=== PATIENT | female | born 1930 | race Caucasian/White ===

== ENCOUNTER 2018-12-31 10:40 | Emergency (ER) | payer OTHER ==
--- NOTE | 2018-12-31 11:42 | RAD REPORT ---
EXAM DESCRIPTION: RAD - Chest Single View - 12/31/2018 11:35 am CLINICAL HISTORY: low O2 sat Chest pain. COMPARISON: No comparisons FINDINGS: Portable technique limits examination quality. The lungs are underinflated with vascular prominence likely representing mild pulmonary edema. The he art is mildly enlarged in size. No displaced fractures.Postsurgical changes present both shoulders. IMPRESSION: Mild CHF versus volume overload.
--- NOTE | 2018-12-31 11:51 | RAD REPORT ---
EXAM DESCRIPTION: CT - Head Brain Wo Cont - 12/31/2018 11:43 am CLINICAL HISTORY: SYNCOPE Headache, syncope COMPARISON: No comparisons TECHNIQUE: All CT scans are performed using dose optimization technique as appropriate and may inclu de automated exposure control or mA/KV adjustment according to patient size. FINDINGS: No intracranial hemorrhage, hydrocephalus or extra-axial fluid collection.Generalized brai n atrophy is present. The paranasal sinuses and mastoids are clear. The calvarium is intact. Vertebral arteries are calcifi ed. IMPRESSION: No acute intracranial abnormality.
[2018-12-31 11:52] LABS: Protime INR 0.96
[2018-12-31 11:55] LABS: Absolute Lymphocytes (CBC) 2.2 K/uL (0.7-4.9); Absolute Monocytes 0.6 K/uL (0.1-1.3); Absolute Neutrophil 3.7 K/uL (1.8-8.0); Basophils % 0.4 % (0-1.3); Eosinophils % 2.2 % (0-4.4); Lymphocytes % 32.9 % (15.3-44.8); MPV 9.2 fL (7.6-11.3); Monocytes % 8.5 % (3.3-12.3); RBC Red Blood Cell Count 4.61 M/uL (3.86-4.86)
[2018-12-31] MEDS ORDERED: NA CHLORIDE 0.9% 1,000 ML ONE (11:59)
[2018-12-31 12:11] LABS: Blood Morphology Comment NOT SEEN (NOT SEEN); Platelet Estimate ADEQ; Urine White Blood Cell Casts OK
[2018-12-31 12:14] LABS: ALT/SGPT 22 U/L (12-78); AST/SGOT 17 U/L (15-37); Albumin 3.8 g/dL (3.4-5.0); Alkaline Phosphatase 91 U/L (45-117); BUN Blood Urea Nitrogen 35 mg/dL (7-18); Bicarbonate 28 mmol/L (21-32); Bilirubin Direct 0.1 mg/dL (0-0.2); Bilirubin Total 0.3 mg/dL (0.2-1.0); Glucose Level 151 mg/dL (74-106); Magnesium 2.2 mg/dL (1.8-2.4); NT PRO-BNP 68 pg/mL (<450); Potassium 4.5 mmol/L (3.5-5.1); Protein, Total 7.6 g/dL (6.4-8.2); Sodium Level 138 mmol/L (136-145); Troponin (Emerg Dept Use Only) < 0.02 ng/mL (0.0-0.045)
[2018-12-31] MEDS ORDERED: FUROSEMIDE 20 MG/ 2ML VIAL ONE (13:11)
[2018-12-31 13:40] LABS: Urine Blood NEGATIVE (NEG); Urine Glucose NEGATIVE (NEG); Urine Protein NEGATIVE (NEG)
--- NOTE | 2018-12-31 13:43 | RAD REPORT ---
EXAM DESCRIPTION: CT - Abdomen Pelvis W Contrast - 12/31/2018 1:11 pm CLINICAL HISTORY: Abdominal pain COMPARISON: None. TECHNIQUE: Biphasic, helical CT imaging of the abdomen and pelvis was performed following 100 ml non -ionic IV contrast. Oral contrast was given. All CT scans are performed using dose optimization technique as appropriate and may include automated exposure control or mA/KV adjustment according to patient size. FINDINGS: No acute lung base finding. Borderline to mild cardiomegaly is present without pericardial thickening or effusion. The liver, spleen, and pancreas show no suspicious findings. Gallbladder is absent. Dilatation of the biliary tree is not outside of normal for a post cholecystectomy patient. Symmetric renal function is seen with no hydronephrosis or suspicious renal mass. No pyelonephritis o r acute parenchymal process. No bladder abnormalities. Uterus and ovaries show no suspicious findings for age. No adrenal abnormalities. No gastric dilatation or wall thickening. No acute small bowel finding. Large stool volume present th roughout the colon. No colon wall thickening, mass or acute colon process seen. Diverticulosis is mil d an without diverticulitis finding. No free air, free fluid or inflammatory stranding. No hernia, mass or bulky lymphadenopathy. Advanced lumbar spine degenerative change present. No pathologic bone process. IMPRESSION: Contrast enhanced CT abdomen and pelvis showing no acute or emergent finding. Non acute findings detailed in the body of the report.
--- NOTE | 2018-12-31 13:58 | EDPHYS ---
Physician Documentation [facility] Name: Liat Mercado Age: 88 yrs Sex: Female : 1930 Arrival Date: 12/31/2018 Time: 10:42 Bed 2 Private MD: ED Physician Clement Valenzuela HPI: 12/31 11:26 This 88 yrs old Female presents to ER via EMS with complaints of Near Syncope.dariusz 11:26 The patient has experienced near-syncope, almost passed out, felt generally weak. dariusz Onset: The symptoms/episode began/occurred just prior to arrival. Duration: This was a single episode. Context: the episode(s) was witnessed, by a daycare worker. Associated injury: The patient did not suffer any apparent associated injury. Associated signs and symptoms: The patient has no apparent associated signs or symptoms. Current symptoms: Currently, the patient is not experiencing any symptoms. The patient has not experienced similar symptoms in the past. Historical: - Allergies: 10:48 No Known Allergies; hb - PMHx: 11:00 Alzheimers; Hyperlipidemia; Hypertension; Hypothyroidism; aa5 - Immunization history:: Adult Immunizations up to date. - Social history:: Smoking status: Patient/guardian denies using tobacco. - Ebola Screening: : No symptoms or risks identified at this time. - Family history:: not pertinent. ROS: 11:26 Constitutional: Negative for fever, chills, and weight loss, Eyes: Negative for injury, dariusz pain, redness, and discharge, ENT: Negative for injury, pain, and discharge, Neck: Negative for injury, pain, and swelling, Cardiovascular: Negative for chest pain, palpitations, and edema, Respiratory: Negative for shortness of breath, cough, wheezing, and pleuritic chest pain, Abdomen/GI: Negative for abdominal pain, nausea, vomiting, diarrhea, and constipation, Back: Negative for injury and pain, : Negative for injury, bleeding, discharge, and swelling, MS/Extremity: Negative for injury and deformity, Psych: Negative for depression, anxiety, suicide ideation, homicidal ideation, and hallucinations, Allergy/Immunology: Negative for hives, rash, and allergies, Endocrine: Negative for neck swelling, polydipsia, polyuria, polyphagia, and marked weight changes, Hematologic/Lymphatic: Negative for swollen nodes, abnormal bleeding, and unusual bruising. 11:26 Skin: Positive for pallor. 11:26 Neuro: Positive for near syncope. Exam: 11:28 Constitutional: This is a well developed, well nourished patient who is awake, alert, dariusz and in no acute distress. Head/Face: Normocephalic, atraumatic. Eyes: Pupils equal round and reactive to light, extra-ocular motions intact. Lids and lashes normal. Conjunctiva and sclera are non-icteric and not injected. Cornea within normal limits. Periorbital areas with no swelling, redness, or edema. ENT: Nares patent. No nasal discharge, no septal abnormalities noted. Tympanic membranes are normal and external auditory canals are clear. Oropharynx with no redness, swelling, or masses, exudates, or evidence of obstruction, uvula midline. Mucous membranes moist. Neck: Trachea midline, no thyromegaly or masses palpated, and no cervical lymphadenopathy. Supple, full range of motion without nuchal rigidity, or vertebral point tenderness. No Meningismus. Chest/axilla: Normal chest wall appearance and motion. Nontender with no deformity. No lesions are appreciated. Cardiovascular: Regular rate and rhythm with a normal S1 and S2. No gallops, murmurs, or rubs. Normal PMI, no JVD. No pulse deficits. Respiratory: Lungs have equal breath sounds bilaterally, clear to auscultation and percussion. No rales, rhonchi or wheezes noted. No increased work of breathing, no retractions or nasal flaring. Abdomen/GI: Soft, non-tender, with normal bowel sounds. No distension or tympany. No guarding or rebound. No evidence of tenderness throughout. Back: No spinal tenderness. No costovertebral tenderness. Full range of motion. MS/ Extremity: Pulses equal, no cyanosis. Neurovascular intact. Full, normal range of motion. Neuro: Awake and alert, GCS 15, oriented to person, place, time, and situation. Cranial nerves II-XII grossly intact. Motor strength 5/5 in all extremities. Sensory grossly intact. Cerebellar exam normal. Normal gait. Psych: Awake, alert, with orientation to person, place and time. Behavior, mood, and affect are within normal limits. 11:28 Skin: Appearance: Color: pale, Temperature: normal temperature, Moisture: normal moisture, petechiae, not noted, ecchymosis, not noted. Vital Signs: 10:45 BP 105 / 74; Pulse 82; Resp 16; Temp 97.8; Pulse Ox 96% on R/A; Weight 89.81 kg; Height hb 5 ft. 6 in. (167.64 cm); Pain 0/10; 11:00 BP 101 / 62; Pulse 89; Resp 16 S; Pulse Ox 95% on R/A; aa5 11:30 BP 102 / 73; Pulse 83; Resp 18 S; Pulse Ox 98% on R/A; aa5 12:20 BP 115 / 71; Pulse 87; Resp 16 S; Pulse Ox 96% on R/A; aa5 13:17 BP 134 / 70; Pulse 82; Resp 16 S; Pulse Ox 96% on R/A; aa5 13:30 BP 122 / 70; Pulse 84; Resp 18 S; Pulse Ox 96% on R/A; aa5 14:45 BP 123 / 75; Pulse 89; Resp 16 S; Temp 97.8(TE); Pulse Ox 97% on R/A; aa5 10:45 Body Mass Index 31.96 (89.81 kg, 167.64 cm) hb MDM: 11:19 Patient medically screened. [facility] 11:29 Data reviewed: vital signs, nurses notes, lab test result(s), EKG, radiologic studies, [facility] CT scan, plain films. 12/31 11:10 Order name: Basic Metabolic Panel 12/31 11:10 Order name: CBC with Diff 12/31 11:10 Order name: LFT's; Complete Time: 12:21 12/31 11:10 Order name: Magnesium; Complete Time: 12:21 12/31 11:10 Order name: NT PRO-BNP; Complete Time: 12:21 12/31 11:10 Order name: PT-INR; Complete Time: 12:04 12/31 11:10 Order name: Troponin (emerg Dept Use Only); Complete Time: 12:21 12/31 11:10 Order name: XRAY Chest (1 view); Complete Time: 12:04 12/31 11:12 Order name: Basic Metabolic Panel; Complete Time: 12:21 EDMS 12/31 11:12 Order name: CBC with Automated Diff; Complete Time: 12:21 EDMS 12/31 11:20 Order name: Urine Culture [facility] 12/31 11:20 Order name: CT Head Brain wo Cont; Complete Time: 12:04 [facility] 12/31 12:01 Order name: CBC Smear Scan; Complete Time: 12:21 EDWV 12/31 12:23 Order name: Urine Dipstick--Ancillary (enter results); Complete Time: 13:43 ms 12/31 11:10 Order name: EKG; Complete Time: 11:13 [facility] 12/31 11:10 Order name: Cardiac monitoring; Complete Time: 11:43 [facility] 12/31 11:10 Order name: EKG - Nurse/Tech; Complete Time: 11:13 [facility] 12/31 11:10 Order name: IV Saline Lock; Complete Time: 11:43 [facility] 12/31 11:10 Order name: Labs collected and sent; Complete Time: 11:43 [facility] 12/31 11:10 Order name: O2 Per Protocol; Complete Time: 11:43 [facility] 12/31 11:10 Order name: O2 Sat Monitoring; Complete Time: 11:43 [facility] 12/31 11:20 Order name: Urine Dipstick-Ancillary (obtain specimen); Complete Time: 12:17 [facility] 12/31 11:41 Order name: Straight Cath; Complete Time: 12:17 12/31 12:23 Order name: CT Abd/Pelvis - IV Contrast Only; Complete Time: 13:55 [facility] Administered Medications: 12:05 Not Given (Duplicate Order): NS 0.9% 1000 ml IV at 125 ml/hr continuous dariusz 13:18 Drug: Lasix 20 mg Route: IVP; Site: right antecubital; aa5 13:25 Follow up: Response: No adverse reaction aa5 14:29 Drug: NS 0.9% 250 ml Route: IV; Rate: bolus; Site: right antecubital; hb 14:55 Follow up: IV Status: Completed infusion; IV Intake: 250ml aa5 14:29 Drug: Mucomyst - Acetylcysteine 600 mg Route: PO; hb 14:55 Follow up: Response: No adverse reaction aa5 Point of Care Testing: Blood Glucose: 11:05 Blood Glucose: 159 mg/dL; aa5 Ranges: Critical Glucose Levels:Adult <50 mg/dl or >400 mg/dl <40 mg/dl or >180 mg/dl Disposition: 12/31/18 13:57 Discharged to Home. Impression: Syncope and collapse, Weakness, Unspecified kidney failure - insufficency. - Condition is Stable. - Discharge Instructions: Near-Syncope, Orthostatic Hypotension, Weakness, Near-Syncope, Wkvo-[id number]-Hnal, Weakness, [id number]-[id number]. - Medication Reconciliation Form, Thank You Letter, Antibiotic Education, Prescription Opioid Use form. - Follow up: Private Physician; When: 1 - 2 days; Reason: Recheck today's complaints, Continuance of care, Re-evaluation by your physician. - Problem is new. - Symptoms have improved. Signatures: Dispatcher [employer] EDMS Clement Valenzuela MD MD cha Calderon, Audri RN RN aa5 Sydnie Thompson RN RN Hattie Vera RN RN Corrections: (The following items were deleted from the chart) 15:04 13:57 12/31/2018 13:57 Discharged to Home. Impression: Syncope and collapse; Weakness; aa5 Unspecified kidney failure - insufficency. Condition is Stable. Discharge Instructions: Near-Syncope, Orthostatic Hypotension, Weakness, Near-Syncope, Mbbk-[id number]-Ydvs, Weakness, [id number]-[id number]. Forms are Medication Reconciliation Form, Thank You Letter, Antibiotic Education, Prescription Opioid Use. Follow up: Private Physician; When: 1 - 2 days; Reason: Recheck today's complaints, Continuance of care, Re-evaluation by your physician. Problem is new. Symptoms have improved. dariusz
--- NOTE | 2018-12-31 13:58 | ER ---
Nurse's Notes [facility] Name: Liat Mercado Age: 88 yrs Sex: Female : 1930 Arrival Date: 12/31/2018 Time: 10:42 Bed 2 Private MD: Diagnosis: Syncope and collapse;Weakness;Unspecified kidney failure-insufficency Presentation: 12/31 10:42 Presenting complaint: EMS states: Witnessed near syncopal episode after standing up hb from cough. Pt collapsed back on to couch, no injuries. BP 94/61, HR 93, SPO2 97% on BGL 167. Transition of care: patient was received from another setting of care (long-term care facility), [facility]. Onset of symptoms was December 31, 2018. Risk Assessment: Do you want to hurt yourself or someone else? Patient reports no desire to harm self or others. Care prior to arrival: 10:42 Method Of Arrival: EMS: [facility] hb 10:42 Acuity: YAMILETH 3 hb 11:00 Initial Sepsis Screen: Does the patient meet any 2 criteria? No. Patient's initial aa5 sepsis screen is negative. Does the patient have a suspected source of infection? No. Patient's initial sepsis screen is negative. Historical: - Allergies: 10:48 No Known Allergies; hb - PMHx: 11:00 Alzheimers; Hyperlipidemia; Hypertension; Hypothyroidism; aa5 - Immunization history:: Adult Immunizations up to date. - Social history:: Smoking status: Patient/guardian denies using tobacco. - Ebola Screening: : No symptoms or risks identified at this time. - Family history:: not pertinent. Screenin:00 Abuse screen: No signs of abuse noted. aa5 11:00 Nutritional screening: No deficits noted. Tuberculosis screening: No symptoms or risk aa5 factors identified. Fall Risk Fall in past 12 months (25 points). Secondary diagnosis (15 points) Alzheimer's, IV access (20 points). Mental Status- Overestimates/Forgets Limitations (15 pts.). Total Escobar Fall Scale indicates High Risk Score (45 or more points). Fall prevention measures have been instituted. Side Rails Up X 2 Placed Close to Nursing Station. Assessment: 11:00 General: Appears comfortable, Behavior is calm, cooperative, Pt sitting up in bed, aa5 denies any symptoms at this time. . Pain: Denies pain. Neuro: Level of Consciousness is awake, obeys commands, confused, Oriented to person, Residential Installer are weak bilaterally Moves all extremities. Speech is normal, Facial symmetry appears normal, Pupils are PERRLA. Cardiovascular: Heart tones S1 S2 present Rhythm is regular. Respiratory: Airway is patent Respiratory effort is even, unlabored, Respiratory pattern is regular, symmetrical, Breath sounds are clear bilaterally. GI: Abdomen is round obese, Bowel sounds present X 4 quads. Abd is soft and non tender X 4 quads. : brief noted. EENT: No signs and/or symptoms were reported regarding the EENT system. Derm: Skin is pink, warm \\T\\ dry. Musculoskeletal: Range of motion: intact in all extremities. 11:40 Reassessment: Pt resting in bed with eyes closed, respirations even and unlabored, skin aa5 is pink/warm/dry. Pt's utavyxsi-[id number] at bedside. . 12:20 Reassessment: Pt crying, pt noted to be guarding abdomen, when asked if having aa5 abdominal pain pt states "no". Pt's [id number]-[id number]-jua attempting to comfort pt. Dr. Valenzuela was notified. . 13:11 Reassessment: Pt back from CT scan via stretcher. aa5 13:11 Reassessment: Pt appears calm, pt's family at bedside. . Neuro: Level of Consciousness aa5 is awake, obeys commands, confused, Oriented to person. Respiratory: Airway is patent Respiratory effort is even, unlabored, Respiratory pattern is regular, symmetrical. Derm: Skin is pink, warm \\T\\ dry. 14:45 Neuro: Level of Consciousness is awake, obeys commands, confused, Oriented to person. aa5 Respiratory: Airway is patent Respiratory effort is even, unlabored, Respiratory pattern is regular, symmetrical. Derm: Skin is pink, warm \\T\\ dry. Vital Signs: 10:45 BP 105 / 74; Pulse 82; Resp 16; Temp 97.8; Pulse Ox 96% on R/A; Weight 89.81 kg; Height hb 5 ft. 6 in. (167.64 cm); Pain 0/10; 11:00 BP 101 / 62; Pulse 89; Resp 16 S; Pulse Ox 95% on R/A; aa5 11:30 BP 102 / 73; Pulse 83; Resp 18 S; Pulse Ox 98% on R/A; aa5 12:20 BP 115 / 71; Pulse 87; Resp 16 S; Pulse Ox 96% on R/A; aa5 13:17 BP 134 / 70; Pulse 82; Resp 16 S; Pulse Ox 96% on R/A; aa5 13:30 BP 122 / 70; Pulse 84; Resp 18 S; Pulse Ox 96% on R/A; aa5 14:45 BP 123 / 75; Pulse 89; Resp 16 S; Temp 97.8(TE); Pulse Ox 97% on R/A; aa5 10:45 Body Mass Index 31.96 (89.81 kg, 167.64 cm) hb ED Course: 10:42 Patient arrived in ED. hb 10:45 Triage completed. hb 10:45 Arm band placed on. hb 10:49 Marla Carranza, RN is Primary Nurse. aa5 11:00 Patient has correct armband on for positive identification. Placed in gown. Bed in low aa5 position. Call light in reach. Side rails up X2. 11:07 EKG done, by corrosion technician. reviewed by Clement Valenzuela MD. sm3 11:18 Initial lab(s) drawn, by ms, sent to lab. aa5 11:19 Clement Valenzuela MD is Attending Physician. dariusz 11:39 XRAY Chest (1 view) In Process Unspecified. EDMS 11:46 CT Head Brain wo Cont In Process Unspecified. EDMS 12:15 Straight cath inserted, using sterile technique, 16 Fr. Specimen obtained. Returned aa5 clear yellow urine. Patient tolerated well. 12:15 No provider procedures requiring assistance completed. aa5 13:11 Inserted saline lock: 22 gauge in right antecubital area, using aseptic technique. aa5 Started by Veronica collection technician. 20 G to L AC was dc'd by collection technician, catheter intact, pressure dressing applied. 13:12 CT Abd/Pelvis - IV Contrast Only In Process Unspecified. EDMS 15:00 IV discontinued, intact, bleeding controlled, No redness/swelling at site. Pressure aa5 dressing applied. Administered Medications: 12:05 Not Given (Duplicate Order): NS 0.9% 1000 ml IV at 125 ml/hr continuous dariusz 13:18 Drug: Lasix 20 mg Route: IVP; Site: right antecubital; aa5 13:25 Follow up: Response: No adverse reaction aa5 14:29 Drug: NS 0.9% 250 ml Route: IV; Rate: bolus; Site: right antecubital; hb 14:55 Follow up: IV Status: Completed infusion; IV Intake: 250ml aa5 14:29 Drug: Mucomyst - Acetylcysteine 600 mg Route: PO; hb 14:55 Follow up: Response: No adverse reaction aa5 Point of Care Testing: Blood Glucose: 11:05 Blood Glucose: 159 mg/dL; aa5 Ranges: Intake: 14:55 IV: 250ml; Total: 250ml. aa5 Output: 14:29 Urine: 400ml (Voided); Total: 400ml. hb Outcome: 13:57 Discharge ordered by . dariusz 15:00 Discharged to [facility]. Via wheelchair, accompanied aa5 by daughter. 15:00 Condition: stable 15:00 Discharge instructions given to Pt's daughter Instructed on discharge instructions, follow up and referral plans. Demonstrated understanding of instructions, follow-up care. 15:04 Patient left the ED. aa5 Signatures: Dispatcher [employer] EDMS Clement Valenzuela MD MD cha Calderon, Audri RN RN aa5 Hattie Vera RN RN Nina Munoz 3 Corrections: (The following items were deleted from the chart) 10:45 10:42 Presenting complaint: EMS states: Witnessed near syncopal episode after standing hb up from cough. Pt collapsed back on to couch, no injuries. BP 94/61, HR 93, SPO2 97% on BGL 127 hb
[2018-12-31] MEDS ORDERED: ACETYLCYST 6,000 MG/30 ML VIAL ONE (14:38)
[2018-12-31] MEDS ORDERED: CEFTRIAXONE/SWI 1gm 1 GM/10 ML SYR ONE (15:59)
--- NOTE | 2019-01-01 08:07 | EKG ---
Test Date: 2018-12-31 Test Time: 10:43:15 Customer Service Leader: ROXANNA MEASUREMENT RESULTS: Intervals: Rate: 88 UT: 178 QRSD: 140 QT: 382 QTc: 462 [place]: P: 92 UT: 178 QRS: -42 T: 8 INTERPRETIVE STATEMENTS: Normal sinus rhythm Left axis deviation Right bundle branch block Minimal voltage criteria for LVH, may be normal variant Abnormal ECG Compared to ECG 10/23/2007 16:57:41 Atrial premature complex(es) no longer present Electronically Signed On 01-01-19 08:06:14 CDT by Gabo Dukes
== END 2018-12-31 15:04 | disposition home or self-care (01) ==
LOC: ER 10:40
DX: R55 Syncope and collapse (principal); R53.83 Other fatigue; N19 Unspecified kidney failure; G30.9 Alzheimer's disease, unspecified; F02.80 Dementia in other diseases classified elsewhere, unspecified severity, without behavioral disturbance, psychotic disturbance, mood disturbance, and anxiety; E78.5 Hyperlipidemia, unspecified; I10 Essential (primary) hypertension; E03.9 Hypothyroidism, unspecified
CPT/HCPCS: 96365; 93005; 85025; 87086; 80048; 36415; 83735; 85610; 82962; 80076; 81003; 84484; 83880; 70450; 74177; 71045; 51702; 96375; 99284; Q9967; J1940; J0696; J7030; 87088

== ENCOUNTER 2019-03-31 17:39 | Observation (INO) | payer OTHER ==
[2019-03-31] MEDS ORDERED: NA CHLORIDE 0.9% 500 ML ONE (21:33)
[2019-03-31 22:37] LABS: Protime INR 0.97
[2019-03-31 22:41] LABS: Absolute Lymphocytes (CBC) 2.1 K/uL (0.7-4.9); Basophils % 0.3 % (0-1.3); Hematocrit 36.3 % (36.0-45.0); Lymphocytes % 44.1 % (15.3-44.8); RBC Red Blood Cell Count 4.16 M/uL (3.86-4.86)
[2019-03-31 22:50] LABS: ALT/SGPT 22 U/L (12-78); AST/SGOT 15 U/L (15-37); Albumin 3.4 g/dL (3.4-5.0); Alkaline Phosphatase 101 U/L (45-117); BUN Blood Urea Nitrogen 25 mg/dL (7-18); Bicarbonate 30 mmol/L (21-32); Bilirubin Direct 0.1 mg/dL (0-0.2); Bilirubin Total 0.3 mg/dL (0.2-1.0); Glucose Level 118 mg/dL (74-106); Lipase 139 U/L (73-393); NT PRO-BNP 114 pg/mL (<450); Protein, Total 6.9 g/dL (6.4-8.2); Sodium Level 142 mmol/L (136-145); Troponin (Emerg Dept Use Only) < 0.02 ng/mL (0.0-0.045)
--- NOTE | 2019-03-31 22:56 | RAD REPORT ---
EXAM DESCRIPTION: RAD - Chest Single View - 03/31/2019 10:01 pm CLINICAL HISTORY: COUGH Chest pain. COMPARISON: Chest Single View dated 12/31/2018 FINDINGS: Portable technique limits examination quality. Mild interstitial pulmonary edema is present. The heart is mildly enlarged in size. No displaced frac tures. IMPRESSION: Mild CHF versus volume overload.
--- NOTE | 2019-03-31 23:04 | ER ---
Nurse's Notes [facility] Name: Liat Mercado Age: 89 yrs Sex: Female : 1930 Arrival Date: 03/31/2019 Time: 17:52 Bed 18 Private MD: Diagnosis: Dyspnea;Weakness;Unspecified combined systolic (congestive) and diastolic (congestive) heart failure;Alzheimer's disease;Hypoxemia Presentation: 03/31 17:52 Presenting complaint: EMS states: NH ATTENDANT AT [facility] CALLED 911 FOR PT HAVE bp A "SHAKING EPISODE" WITH NO FALL, NO LOC, AND NO INCONTINENCE. PT DENIES ACUTE MEDICAL COMPLAINT. Transition of care: patient was received from another setting of care (long-term care facility), [facility]. Onset of symptoms is unknown. Risk Assessment: Do you want to hurt yourself or someone else? Patient reports no desire to harm self or others. Initial Sepsis Screen: Does the patient meet any 2 criteria? No. Patient's initial sepsis screen is negative. Does the patient have a suspected source of infection? No. Patient's initial sepsis screen is negative. Care prior to arrival: Glucose check: 109. 17:52 Method Of Arrival: EMS: [facility] bp 17:52 Acuity: YAMILETH 4 bp Triage Assessment: 17:55 General: Appears in no apparent distress. comfortable, obese, Behavior is calm, bp cooperative. Pain: Denies pain. EENT: No deficits noted. Neuro: MENTATION AND GAIT AT BASELINE. Cardiovascular: No deficits noted. Respiratory: No deficits noted. GI: No signs and/or symptoms were reported involving the gastrointestinal system. : No signs and/or symptoms were reported regarding the genitourinary system. Derm: No deficits noted. Musculoskeletal: No deficits noted. Historical: - Allergies: 17:55 No Known Allergies; bp - PMHx: 17:55 Alzheimers; Hyperlipidemia; Hypertension; Hypothyroidism; bp - Immunization history:: Adult Immunizations up to date. - Social history:: Smoking status: Patient/guardian denies using tobacco. - Ebola Screening: : No symptoms or risks identified at this time. - Family history:: not pertinent. Screenin:57 Abuse screen: Denies threats or abuse. Denies injuries from another. Nutritional bp screening: No deficits noted. Tuberculosis screening: No symptoms or risk factors identified. Fall Risk None identified. Assessment: 17:57 General: SEE TRIAGE NOTE. bp 19:11 General: Appears in no apparent distress. comfortable, Behavior is calm, cooperative, jd3 appropriate for age. Pain: Denies pain. Neuro: Level of Consciousness is awake, alert, obeys commands, Oriented to person, family reports the pt is at baseline.. Cardiovascular: Heart tones S1 S2 present Capillary refill < 3 seconds Patient's skin is warm and dry. Respiratory: Airway is patent Respiratory effort is even, unlabored, Respiratory pattern is regular, symmetrical, Breath sounds are clear bilaterally. GI: No signs and/or symptoms were reported involving the gastrointestinal system. : No signs and/or symptoms were reported regarding the genitourinary system. EENT: No signs and/or symptoms were reported regarding the EENT system. Derm: Skin is intact, Skin is dry, Skin is normal, Skin temperature is warm. Musculoskeletal: Circulation, motion, and sensation intact. Range of motion: intact in all extremities. 20:52 Reassessment: Patient appears in no apparent distress at this time. No changes from jd3 previously documented assessment. Patient and/or family updated on plan of care and expected duration. Pain level reassessed. awaiting orders. 22:23 Reassessment: Patient appears in no apparent distress at this time. Patient and/or jd3 family updated on plan of care and expected duration. Pain level reassessed. labs collected by phlebotomy except for second set of cultures, provider notified. even and unlabored respirations. resting in bed comfortably, denies pain. 23:51 Reassessment: Patient appears in no apparent distress at this time. Patient and/or jd3 family updated on plan of care and expected duration. Pain level reassessed. pt resting in bed with eyes closed, even and unlabored respirations. A\\T\\O X 1. family reports that the pt';s mentation is at baseline. awaiting admission orders and room placement. 04/01 00:31 Reassessment: Patient appears in no apparent distress at this time. No changes from jd3 previously documented assessment. Patient and/or family updated on plan of care and expected duration. Pain level reassessed. report given to Isaac MAR. Vital Signs: 03/31 17:55 BP 137 / 90; Pulse 90; Resp 16; Temp 98.5; Pulse Ox 99% on 2 lpm NC; Weight 90.72 kg; bp 19:14 BP 141 / 73; Pulse 89; Resp 17 S; Pulse Ox 96% on R/A; Pain 0/10; jd3 20:52 BP 150 / 88; Pulse 83; Resp 17 S; Pulse Ox 95% on R/A; jd3 22:25 BP 112 / 96; Pulse 81; Resp 16 S; Pulse Ox 96% on R/A; jd3 23:51 BP 137 / 59; Pulse 83; Resp 17 S; Pulse Ox 99% on R/A; Pain 0/10; jd3 04/01 00:32 BP 117 / 64; Pulse 84; Resp 17 S; Pulse Ox 99% on R/A; jd3 ED Course: 03/31 17:52 Patient arrived in ED. bp 17:54 Triage completed. bp 17:55 Arm band placed on. bp 17:57 Patient has correct armband on for positive identification. Bed in low position. Call bp light in reach. Side rails up X2. Adult w/ patient. 19:11 Sergio Damico, ISABELA is Primary Nurse. jd3 19:46 Clement Valenzuela MD is Attending Physician. dariusz 21:31 Inserted saline lock: 22 gauge in right antecubital area, using aseptic technique. jd3 22:02 XRAY Chest (1 view) In Process Unspecified. EDMS 23:02 Varun Gloria MD is Hospitalizing Provider. [facility] 04/01 00:33 No provider procedures requiring assistance completed. Patient admitted, IV remains in jd3 place. Administered Medications: 03/31 21:37 Drug: NS 0.9% 500 ml Route: IV; Rate: bolus; Site: right antecubital; j 23:49 Follow up: Response: No adverse reaction; IV Status: Completed infusion j 23:50 Drug: Lasix 20 mg Route: IVP; Site: right antecubital; [facility] 04/01 00:45 Follow up: Response: No adverse reaction [facility] 03/31 23:50 Drug: levofloxacin 500 mg Volume: 100 ml; Route: IVPB; Infused Over: 60 mins; Site: [facility] right antecubital; 04/01 00:51 Follow up: Response: No adverse reaction; IV Status: Infusion continued upon admission [facility] 03/31 23:50 Drug: Xopenex 1.25 mg Route: Inhalation; jd3 04/01 00:45 Follow up: Response: No adverse reaction j 03/31 23:50 Drug: AtroVENT Aerosol 0.5 mg Route: Inhalation; jd3 04/01 00:45 Follow up: Response: No adverse reaction jdevika Outcome: 03/31 23:03 Decision to Hospitalize by Provider. dariusz 04/01 00:33 Admitted to Med/surg accompanied by tech, via stretcher, room 401, with chart, Report jdevika called to Isaac MAR Condition: stable Instructed on the need for admit, Demonstrated understanding of instructions. 00:48 Patient left the ED. j Signatures: Dispatcher [employer] EDClement Palmer MD MD cha Davies, Jonathon, RN RN Prosper Schaffer, ISABELA RN bp Corrections: (The following items were deleted from the chart) 03/31 22:25 22:23 Reassessment: Patient appears in no apparent distress at this time. Patient memo and/or family updated on plan of care and expected duration. Pain level reassessed. labs collected by phlebotomy except for second set of cultures, provider notified. [facility] 23:13 23:11 BP 134 / 81; Pulse 67bpm; Resp 15bpm; Spontaneous; Pulse Ox 97% RA; Pain 3/10; jd3jd3
--- NOTE | 2019-03-31 23:05 | EDPHYS ---
Physician Documentation [facility] Name: Liat Mercado Age: 89 yrs Sex: Female : 1930 Arrival Date: 03/31/2019 Time: 17:52 Bed 18 Private MD: ED Physician Clement Valenzuela HPI: 03/31 20:52 This 89 yrs old Female presents to ER via EMS with complaints of ASYMPTOMATIC.dariusz 20:52 weakness, shaking. Onset: The symptoms/episode began/occurred just prior to arrival. dariusz Severity of symptoms: At their worst the symptoms were mild in the emergency department the symptoms are unchanged. The patient has not experienced similar symptoms in the past. Historical: - Allergies: 17:55 No Known Allergies; bp - PMHx: 17:55 Alzheimers; Hyperlipidemia; Hypertension; Hypothyroidism; bp - Immunization history:: Adult Immunizations up to date. - Social history:: Smoking status: Patient/guardian denies using tobacco. - Ebola Screening: : No symptoms or risks identified at this time. - Family history:: not pertinent. ROS: 20:52 Constitutional: Negative for fever, chills, and weight loss, Eyes: Negative for injury, dariusz pain, redness, and discharge, ENT: Negative for injury, pain, and discharge, Neck: Negative for injury, pain, and swelling, Cardiovascular: Negative for chest pain, palpitations, and edema, Respiratory: Negative for shortness of breath, cough, wheezing, and pleuritic chest pain, Abdomen/GI: Negative for abdominal pain, nausea, vomiting, diarrhea, and constipation, Back: Negative for injury and pain, : Negative for injury, bleeding, discharge, and swelling, MS/Extremity: Negative for injury and deformity, Skin: Negative for injury, rash, and discoloration, Neuro: Negative for headache, weakness, numbness, tingling, and seizure, Psych: Negative for depression, anxiety, suicide ideation, homicidal ideation, and hallucinations, Allergy/Immunology: Negative for hives, rash, and allergies, Endocrine: Negative for neck swelling, polydipsia, polyuria, polyphagia, and marked weight changes, Hematologic/Lymphatic: Negative for swollen nodes, abnormal bleeding, and unusual bruising. Exam: 20:52 Constitutional: This is a well developed, well nourished patient who is awake, alert, dariusz and in no acute distress. Head/Face: Normocephalic, atraumatic. Eyes: Pupils equal round and reactive to light, extra-ocular motions intact. Lids and lashes normal. Conjunctiva and sclera are non-icteric and not injected. Cornea within normal limits. Periorbital areas with no swelling, redness, or edema. ENT: Nares patent. No nasal discharge, no septal abnormalities noted. Tympanic membranes are normal and external auditory canals are clear. Oropharynx with no redness, swelling, or masses, exudates, or evidence of obstruction, uvula midline. Mucous membranes moist. Neck: Trachea midline, no thyromegaly or masses palpated, and no cervical lymphadenopathy. Supple, full range of motion without nuchal rigidity, or vertebral point tenderness. No Meningismus. Chest/axilla: Normal chest wall appearance and motion. Nontender with no deformity. No lesions are appreciated. Cardiovascular: Regular rate and rhythm with a normal S1 and S2. No gallops, murmurs, or rubs. Normal PMI, no JVD. No pulse deficits. Respiratory: Lungs have equal breath sounds bilaterally, clear to auscultation and percussion. No rales, rhonchi or wheezes noted. No increased work of breathing, no retractions or nasal flaring. Abdomen/GI: Soft, non-tender, with normal bowel sounds. No distension or tympany. No guarding or rebound. No evidence of tenderness throughout. Back: No spinal tenderness. No costovertebral tenderness. Full range of motion. Female : Normal external genitalia. Skin: Warm, dry with normal turgor. Normal color with no rashes, no lesions, and no evidence of cellulitis. MS/ Extremity: Pulses equal, no cyanosis. Neurovascular intact. Full, normal range of motion. Neuro: Awake and alert, GCS 15, oriented to person, place, time, and situation. Cranial nerves II-XII grossly intact. Motor strength 5/5 in all extremities. Sensory grossly intact. Cerebellar exam normal. Normal gait. Psych: Awake, alert, with orientation to person, place and time. Behavior, mood, and affect are within normal limits. Vital Signs: 17:55 BP 137 / 90; Pulse 90; Resp 16; Temp 98.5; Pulse Ox 99% on 2 lpm NC; Weight 90.72 kg; bp 19:14 BP 141 / 73; Pulse 89; Resp 17 S; Pulse Ox 96% on R/A; Pain 0/10; jd3 20:52 BP 150 / 88; Pulse 83; Resp 17 S; Pulse Ox 95% on R/A; jd3 22:25 BP 112 / 96; Pulse 81; Resp 16 S; Pulse Ox 96% on R/A; jd3 23:51 BP 137 / 59; Pulse 83; Resp 17 S; Pulse Ox 99% on R/A; Pain 0/10; jd3 0912 00:32 BP 117 / 64; Pulse 84; Resp 17 S; Pulse Ox 99% on R/A; jd3 MDM: 03/31 19:46 Patient medically screened. [facility] 20:52 Data reviewed: vital signs, nurses notes, lab test result(s), EKG, radiologic studies, dariusz plain films. 03/31 20:52 Order name: Basic Metabolic Panel; Complete Time: 22:54 [facility] 03/31 20:52 Order name: CBC with Diff; Complete Time: 22:54 [facility] 03/31 20:52 Order name: LFT's; Complete Time: 22:54 [facility] 03/31 20:52 Order name: Magnesium; Complete Time: 22:54 [facility] 03/31 20:52 Order name: NT PRO-BNP; Complete Time: 22:54 [facility] 03/31 20:52 Order name: PT-INR; Complete Time: 22:54 [facility] 03/31 20:52 Order name: Troponin (emerg Dept Use Only); Complete Time: 22:54 [facility] 03/31 20:52 Order name: Urine Culture [facility] 03/31 20:52 Order name: Lipase; Complete Time: 22:54 [facility] 03/31 20:52 Order name: Blood Culture Adult (2) [facility] 03/31 20:52 Order name: Procalcitonin [facility] 03/31 23:45 Order name: Basic Metabolic Panel [facility] 03/31 23:45 Order name: Basic Metabolic Panel [facility] 03/31 23:45 Order name: CBC with Automated Diff [facility] 03/31 20:52 Order name: XRAY Chest (1 view) [facility] 03/31 22:36 Order name: US Extremity Venous Unilateral Ltd [facility] 03/31 23:45 Order name: Echo with Doppler [facility] 03/31 23:45 Order name: CBC with Automated Diff [facility] 03/31 23:45 Order name: Magnesium [facility] 03/31 23:45 Order name: Magnesium [facility] 03/31 23:45 Order name: Phosphorus [facility] 03/31 23:45 Order name: Phosphorus [facility] 03/31 23:45 Order name: NT PRO-BNP [facility] 03/31 23:45 Order name: NT PRO-BNP [facility] 03/31 23:45 Order name: Troponin I [facility] 03/31 23:45 Order name: Troponin I [facility] 04/01 00:26 Order name: Urine Dipstick--Ancillary (enter results) 03/31 20:52 Order name: EKG; Complete Time: 21:22 [facility] 03/31 20:52 Order name: Cardiac monitoring; Complete Time: 21:30 [facility] 03/31 20:52 Order name: EKG - Nurse/Tech; Complete Time: 21:30 [facility] 03/31 20:52 Order name: IV Saline Lock; Complete Time: 21:30 [facility] 03/31 20:52 Order name: O2 Per Protocol; Complete Time: 21:14 [facility] 03/31 20:52 Order name: O2 Sat Monitoring; Complete Time: 21:14 [facility] 03/31 20:52 Order name: Urine Dipstick-Ancillary (obtain specimen); Complete Time: 00:25 [facility] 03/31 23:45 Order name: Physical Therapy Consult [facility] 03/31 23:45 Order name: Heart Healthy [facility] Administered Medications: 21:37 Drug: NS 0.9% 500 ml Route: IV; Rate: bolus; Site: right antecubital; [facility] 23:49 Follow up: Response: No adverse reaction; IV Status: Completed infusion [facility] 23:50 Drug: Lasix 20 mg Route: IVP; Site: right antecubital; [facility] 04/01 00:45 Follow up: Response: No adverse reaction [facility] 03/31 23:50 Drug: levofloxacin 500 mg Volume: 100 ml; Route: IVPB; Infused Over: 60 mins; Site: [facility] right antecubital; 04/01 00:51 Follow up: Response: No adverse reaction; IV Status: Infusion continued upon admission [facility] 03/31 23:50 Drug: Xopenex 1.25 mg Route: Inhalation; [facility] 04/01 00:45 Follow up: Response: No adverse reaction [facility] 03/31 23:50 Drug: AtroVENT Aerosol 0.5 mg Route: Inhalation; [facility] 04/01 00:45 Follow up: Response: No adverse reaction jd3 Disposition: 03/31/19 23:03 Hospitalization ordered by Varun Gloria for Inpatient Admission. Preliminary diagnosis are Dyspnea, Weakness, Unspecified combined systolic (congestive) and diastolic (congestive) heart failure, Alzheimer's disease, Hypoxemia. - Bed requested for Telemetry/MedSurg (Inpatient). - Status is Inpatient Admission. jd3 - Condition is Fair. - Problem is new. - Symptoms have improved. UTI on Admission? No Signatures: Dispatcher [employer] EDMS Nikky Mejia RN RN mw Anderson, Corey, MD MD cha Davies, Jonathon, RN RN jd3 Peltier, Brian, RN RN bp Corrections: (The following items were deleted from the chart) 03/31 23:25 23:03 Hospitalization Ordered by Varun Gloria MD for Inpatient Admission. Preliminary [facility] diagnosis is Dyspnea; Weakness; Unspecified combined systolic (congestive) and diastolic (congestive) heart failure; Alzheimer's disease. Bed requested for Telemetry/MedSurg (Inpatient). Status is Inpatient Admission. Condition is Fair. Problem is new. Symptoms have improved. UTI on Admission? No. dariusz 04/01 00:03 03/31 23:25 03/31/2019 23:03 Hospitalization Ordered by Varun Gloria MD for Inpatient Admission. Preliminary diagnosis is Dyspnea; Weakness; Unspecified combined systolic (congestive) and diastolic (congestive) heart failure; Alzheimer's disease; Hypoxemia. Bed requested for Telemetry/MedSurg (Inpatient). Status is Inpatient Admission. Condition is Fair. Problem is new. Symptoms have improved. UTI on Admission? No. dariusz 04/01 00:48 00:03 03/31/2019 23:03 Hospitalization Ordered by Varun Gloria MD for Inpatient jd3 Admission. Preliminary diagnosis is Dyspnea; Weakness; Unspecified combined systolic (congestive) and diastolic (congestive) heart failure; Alzheimer's disease; Hypoxemia. Bed requested for Telemetry/MedSurg (Inpatient). Status is Inpatient Admission. Condition is Fair. Problem is new. Symptoms have improved. UTI on Admission? No. mw
[2019-03-31] MEDS ORDERED: Levofloxacin500mg IV 500 MG/100 ML BAG IV ONE (23:39)
[2019-03-31] MEDS ORDERED: IPRATROPIUM BROM 0.5MG/2.5ML ONE (23:39)
[2019-03-31] MEDS ORDERED: LEVALBUTEROL 1.25 MG/3 ML NEB ONE (23:39)
[2019-03-31] MEDS ORDERED: FUROSEMIDE 20 MG/ 2ML VIAL ONE (23:39)
[2019-03-31] MEDS ORDERED: NA CHLORIDE 0.9% 1,000 ML IV SCH (23:45)
[2019-04-01 02:31] VITALS: BMI 40.8
[2019-04-01 04:01] LABS: Urine Blood NEGATIVE (NEG); Urine Glucose NEGATIVE (NEG); Urine Protein NEGATIVE (NEG)
[2019-04-01 05:23] LABS: Absolute Lymphocytes (CBC) 1.5 K/uL (0.7-4.9); Basophils % 0.2 % (0-1.3); Hematocrit 33.9 % (36.0-45.0); Lymphocytes % 30.7 % (15.3-44.8); MPV 8.8 fL (7.6-11.3)
[2019-04-01 05:35] LABS: Magnesium 1.8 mg/dL (1.8-2.4); Phosphorus 3.6 mg/dL (2.5-4.9); Potassium 3.5 mmol/L (3.5-5.1)
[2019-04-01] MEDS ORDERED: POTASSIUM CL SA 10 MEQ TAB PO ONE (07:30)
[2019-04-01] MEDS ORDERED: MAGNESIUM SULFATE 1 gm IVPB 1 GM/100 ML BAG IV ONE (07:30)
[2019-04-01] MEDS: ENOXAPARIN 40 MG/0.4 ML SQ SCH (08:20)
[2019-04-01] MEDS: FUROSEMIDE 40 MG/4 ML VIAL IV SCH (08:20)
--- NOTE | 2019-04-01 08:25 | RAD REPORT ---
EXAM DESCRIPTION: US - Extremity Venous Uni Ltd - 04/01/2019 8:01 am CLINICAL HISTORY: PAIN Leg swelling and edema. COMPARISON: No comparisons FINDINGS: Left lower extremity venous system was interrogated with Doppler technique. Normal flow, c ompressibility and augmentation was noted. There is no DVT present. IMPRESSION: No evidence of left lower extremity deep venous thrombosis.
--- NOTE | 2019-04-01 08:30 | P.HP ---
Certification for Inpatient Patient admitted to: Observation With expected LOS: <2 Midnights Patient will require the following post-hospital care: None Practitioner: I am a practitioner with admitting privileges, knowledge of patient current condition, hospital course, and medical plan of care. Services: Services provided to patient in accordance with Admission requirements found in Title 42 Section 412.3 of the Code of Federal Regulations Patient History Date of Service: 03/31/19 Reason for admission: Dyspnea History of Present Illness: Patient is an 89-year-old female came to the hospital with shortness of breath. Patient lives at an assisted living as she has a history of Alzheimer's dementia. She apparently started having tremors/rigors. She was noted to be a little tachypneic as well. She has dementia and is really not able to give much information. They brought her into the hospital for further evaluation. In the emergency room, she had a workup which revealed pulmonary edema. However , her BNP was not elevated. She may have diastolic dysfunction. She may have an underlying pneumonic process. She will be admitted to the hospital under observation status for further evaluation. Allergies No Known Allergies Allergy (Unverified 04/01/19 01:38) Home Medications: Acetaminophen [Pain Relief] 2 tab PO Q4HP PRN 04/01/19 Amlodipine Besylate/Benazepril [Amlodipine-Benazepril 5-20 mg] 1 tab PO DAILY Amoxicillin 1 tab PO BID 04/01/19 B12 Liquid 1,000 mg PO DAILY 04/01/19 Cranberry Fruit Extract/Vit C [Azo Cranberry Softgel] 1 cap PO DAILY 04/01/19 Diclofenac Sodium [Voltaren] 1 win TOP Q6HP PRN 04/01/19 Docosahexanoic AC/Epa [Fish Oil 1,000 MG*] 2 cap PO DAILY 04/01/19 Garlic 1 tab PO DAILY 04/01/19 Levothyroxine [Synthroid*] 1 tab PO DAILY 04/01/19 Loperamide HCl [Imodium A-D] 1 tab PO Q6HP PRN 04/01/19 Melatonin 1 tab PO BEDTIME 04/01/19 Memantine HCl [Namenda*] 1 tab PO BID 04/01/19 Multivit-Min/FA/Lycopen/Lutein [Cvs Spectravite Adult 50 Plus] 1 tab PO DAILY Polyethylene Glycol 3350 [Miralax] 1 pkt PO DAILY 04/01/19 Quetiapine [Seroquel*] 1 tab PO TID PRN 04/01/19 Quetiapine [Seroquel*] 2 tab PO BEDTIME 04/01/19 Simvastatin 1 tab PO DAILY 04/01/19 Triamterene/Hctz [Maxzide 37.5 mg-25 mg Tablet*] 1 tab PO DAILY 04/01/19 - Past Medical/Surgical History Has patient received pneumonia vaccine in the past: Yes Diabetic: No -: Alzheimers -: HLD -: HTN -: Hypothyrodism -: knee surgery -: rotator cuff surgery -: cataract - Family History Father Notes: alzheimers Mother Medical History: Heart disease - Social History Smoking Status: Never smoker Alcohol use: No CD- Drugs: No Caffeine use: Yes Place of Residence: Residential Review of Systems 10-point ROS is otherwise unremarkable Physical Examination - Vital Signs Temperature: 97.3 F Blood Pressure: 118/82 Pulse: 84 Respirations: 16 Pulse Ox (%): 92 - Physical Exam General: Alert, In no apparent distress, Demented HEENT: Atraumatic, PERRLA, Mucous membr. moist/pink, EOMI, Sclerae nonicteric Neck: Supple, 2+ carotid pulse no bruit, No LAD, Without JVD or thyroid abnormality Respiratory: Clear to auscultation bilaterally, Normal air movement Cardiovascular: Regular rate/rhythm, Normal S1 S2, Systolic murmur Gastrointestinal: Normal bowel sounds, Soft and benign, Non-distended, No tenderness Musculoskeletal: No clubbing, No swelling, No tenderness Integumentary: No rashes Neurological: Normal speech, Normal tone, Sensation intact, Cranial nerves 3-12 intact, Abnormal gait, Abnormal strength, Dementia Lymphatics: No axilla or inguinal lymphadenopathy - Studies Laboratory Data (last 24 hrs) 03/31/19 22:15: PT 11.5, INR 0.97 03/31/19 22:15: WBC 4.7 D, Hgb 12.3, Hct 36.3, Plt Count 170 03/31/19 22:15: Sodium 142, Potassium 4.0, BUN 25 H, Creatinine 0.76, Glucose 118 H, Magnesium 2.0, Total Bilirubin 0.3, AST 15, ALT 22, Alkaline Phosphatase 101, Lipase 139 Assessment & Plan - Problems (Diagnosis) (1) Diastolic CHF, acute Current Visit: Yes Status: Acute (2) Alzheimer's dementia Current Visit: Yes Status: Acute (3) Dyspnea Current Visit: Yes Status: Acute (4) Rigors Current Visit: Yes Status: Acute (5) Generalized weakness Current Visit: Yes Status: Acute - Plan Plan: 1. Echocardiogram 2. May need to repeat chest x-ray or get further diagnostic testing to determine if patient has any other underlying pulmonary issues 3. Start low-dose Beta karly 4. Cardiology consultation pending echo results 5. Mild diuresis 6. Strict I's and O's 7. Repeat CXR 8. Daily weights 9. Education regarding diet and treatment of congestive heart failure Discharge Plan: Other (Assisted living) Plan to discharge in: 24 Hours - Advance Directives Does patient have a Living Will: No Does patient have a Durable POA for Healthcare: Yes - Code Status/Comfort Care Code Status Assessed: Yes Code Status: Full Code Critical Care: No Time Spent Managing PTS Care (In Minutes): 45
--- NOTE | 2019-04-01 11:09 | EKG ---
Test Date: 2019-03-31 Test Time: 21:12:40 [employer] Printer: YUMI MEASUREMENT RESULTS: Intervals: Rate: 81 NJ: 206 QRSD: 142 QT: 406 QTc: 471 Roff: P: 38 NJ: 206 QRS: -46 T: 32 INTERPRETIVE STATEMENTS: Normal sinus rhythm Right bundle branch block Left anterior fascicular block Bifascicular block Abnormal ECG Compared to ECG 12/31/2018 10:43:15 Left anterior fascicular block now present Bifascicular block now present Left-axis deviation no longer present Left ventricular hypertrophy no longer present Electronically Signed On 04-01-19 11:06:16 CDT by Johan Perez
--- NOTE | 2019-04-01 17:28 | P.PN ---
Subjective Date of Service: 04/01/19 Chief Complaint: Dyspnea Subjective: Improving Patient states she feels much better today. She stated shortness of breath has improved but she is still coughing. No fever. Review of Systems 10-point ROS is otherwise unremarkable Physical Examination - Vital Signs Temperature: 97.3 F Blood Pressure: 118/82 Pulse: 84 Respirations: 16 Pulse Ox (%): 92 - Physical Exam General: Alert, In no apparent distress, Oriented x3 HEENT: Mucous membr. moist/pink Neck: Supple, JVD not distended Respiratory: Other (Mild bibasilar crackles) Cardiovascular: Regular rate/rhythm, Normal S1 S2, Edema (1+ bilateral lower extremity edema) Gastrointestinal: Normal bowel sounds, Soft and benign, No ascites Musculoskeletal: No swelling Integumentary: No rashes Neurological: Normal strength at 5/5 x4 extr - Studies Laboratory Data (last 24 hrs) 03/31/19 22:15: PT 11.5, INR 0.97 03/31/19 22:15: WBC 4.7 D, Hgb 12.3, Hct 36.3, Plt Count 170 03/31/19 22:15: Sodium 142, Potassium 4.0, BUN 25 H, Creatinine 0.76, Glucose 118 H, Magnesium 2.0, Total Bilirubin 0.3, AST 15, ALT 22, Alkaline Phosphatase 101, Lipase 139 Assessment And Plan - Current Problems (Diagnosis) (1) Diastolic CHF, acute Current Visit: Yes Status: Acute (2) Alzheimer's dementia Current Visit: Yes Status: Acute - Plan Continue IV lasix Daily weight Echocardiogram is pending Further management pending echocardiogram result.
[2019-04-01] MEDS ORDERED: cloNIDine HCl 0.1 MG TAB PO ONE (20:39)
[2019-04-01] MEDS ORDERED: QUETIAPINE 100MG TAB PO SCH (21:00)
[2019-04-02] MEDS ORDERED: QUETIAPINE 25 MG TAB PO PRN (00:55)
[2019-04-02] MEDS ORDERED: MELATONIN PO SCH ×2 (00:59→21:00)
[2019-04-02 06:59] LABS: Potassium 3.6 mmol/L (3.5-5.1)
--- NOTE | 2019-04-02 08:03 | ECHO ---
HEIGHT: 4 ft 11 in WEIGHT: 202 lb 4.8 oz DATE OF STUDY: 04/01/[address]: Varun Gloria MD 2-DIMENSIONAL: YES M.MODE: YES DOPPLER: YES COLOR FLOW: YES TDS: YES PORTABLE: NO DEFINITY: NO BUBBLE STUDY: NO DIAGNOSIS: CONGESTIVE HEART FAILURE CARDIAC HISTORY: CATHERIZATION: NO SURGERY: NO PROSTHETIC VALVE: NO PACEMAKER: NO MEASUREMENTS (cm) DIASTOLIC (NORMALS) SYSTOLIC (NORMALS) IVSd 1.1 (0.6-1.2) LA Diam 3.4 (1.9-4.0) LVEF 68% LVIDd 4.0 (3.5-5.7) LVIDs 2.5 (2.0-3.5) %FS 38% LVPWd 1.1 (0.6-1.2) Ao Diam 2.6 (2.0-3.7) 2 DIMENSIONAL ASSESSMENT: RIGHT ATRIUM: NORMAL LEFT ATRIUM: NORMAL RIGHT VENTRICLE: NORMAL LEFT VENTRICLE: NORMAL TRICUSPID VALVE: NORMAL MITRAL VALVE: NORMAL PULMONIC VALVE: NORMAL AORTIC VALVE: NORMAL PERICARDIAL EFFUSION: NONE AORTIC ROOT: NORMAL LEFT VENTRICULAR WALL MOTION: DECREASED LEFT VENTRICULAR COMPLIANCE. DOPPLER/COLOR FLOW: MILD TRICUSPID REGURGITATION. COMMENTS: NORMAL LEFT VENTRICULAR SIZE. DECREASED LEFT VENTRICULAR COMPLIANCE. MILD TRICUSPID REGURGITATION. NORMAL RIGHT VENTRICULAR SYSTOLIC PRESSURE. NO EFFUSION. TECHNOLOGIST: Nicky ALSTON
[2019-04-02] MEDS: ENOXAPARIN 40 MG/0.4 ML SQ SCH (08:32)
[2019-04-02] MEDS: FUROSEMIDE 40 MG/4 ML VIAL IV SCH (08:34)
[2019-04-02 08:35] VITALS: BP 125/63
[2019-04-02] MEDS ORDERED: LEVOTHYROXINE SOD 0.05 MG TABLET PO SCH (09:00)
[2019-04-02] MEDS ORDERED: MEMANTINE HCL 10 MG TABLET PO SCH (09:00)
[2019-04-02] MEDS ORDERED: POTASSIUM 25 MEQ EFFERV TAB PO ONE (09:00)
[2019-04-02 10:09] VITALS: O2SAT 97
--- NOTE | 2019-04-02 10:24 | P.DS ---
Admission Date: 03/31/19 Discharge Date: 04/02/19 Disposition: TRANSFER TO [facility] Discharge Condition: GOOD Reason for Admission: Dyspnea - Problems (1) Diastolic CHF, acute Status: Acute (2) Alzheimer's dementia Status: Acute Brief History of Present Illness: 89-year-old woman was transferred from assisted living to the emergency department course she developed sudden rigors and tremors and became tachypneic. Daughter also reports patient developed transient rapid heart rate. In the ED, chest x-ray demonstrated mild pulmonary edema. She was afebrile and no leukocytosis. Patient is placed under observation for further management of acute CHF. Hospital Course: Patient admitted with telemetry. Troponin trended was negative. She was treated with IV Lasix. Echocardiogram was performed which reported normal EF. Patient clinically improved with treatment. She did not require oxygen. She is deemed clinically stable for discharge. Vital Signs/Physical Exam: Temp Pulse Resp BP Pulse Ox 98.5 F 68 19 125/63 96 04/02/19 04:00 04/02/19 08:34 04/02/19 04:00 04/02/19 08:34 04/02/19 04:00 General: Oriented x1, Cooperative HEENT: Mucous membr. moist/pink Neck: Supple, JVD not distended, No Thyromegaly Respiratory: Clear to auscultation bilaterally, Normal air movement Cardiovascular: No edema, Regular rate/rhythm, Normal S1 S2 Gastrointestinal: Normal bowel sounds, Soft and benign, No tenderness Musculoskeletal: No swelling, No erythema Laboratory Data at Discharge: WBC 5.0 K/uL (4.3-10.9) 04/01/19 04:50 Hgb 11.7 g/dL (12.0-15.0) L 04/01/19 04:50 Hct 33.9 % (36.0-45.0) L 04/01/19 04:50 Plt Count 176 K/uL (152-406) 04/01/19 04:50 PT 11.5 SECONDS (9.5-12.5) 03/31/19 22:15 INR 0.97 03/31/19 22:15 Sodium 140 mmol/L (136-145) 04/02/19 06:23 Potassium 3.6 mmol/L (3.5-5.1) 04/02/19 06:23 BUN 22 mg/dL (7-18) H 04/02/19 06:23 Creatinine 0.71 mg/dL (0.55-1.3) 04/02/19 06:23 Glucose 108 mg/dL (74-106) H 04/02/19 06:23 Phosphorus 3.6 mg/dL (2.5-4.9) 04/01/19 04:50 Magnesium 2.0 mg/dL (1.8-2.4) 04/02/19 06:23 Total Bilirubin 0.3 mg/dL (0.2-1.0) 03/31/19 22:15 AST 15 U/L (15-37) 03/31/19 22:15 ALT 22 U/L (12-78) 03/31/19 22:15 Alkaline Phosphatase 101 U/L (45-117) 03/31/19 22:15 Troponin I < 0.02 ng/mL (0.0-0.045) 04/01/19 04:50 Lipase 139 U/L (73-393) 03/31/19 22:15 Home Medications: Acetaminophen [Pain Relief] 2 tab PO Q4HP PRN 04/01/19 Amlodipine Besylate/Benazepril [Amlodipine-Benazepril 5-20 mg] 1 tab PO DAILY Amoxicillin 1 tab PO BID 04/01/19 B12 Liquid 1,000 mg PO DAILY 04/01/19 Cranberry Fruit Extract/Vit C [Azo Cranberry Softgel] 1 cap PO DAILY 04/01/19 Diclofenac Sodium [Voltaren] 1 win TOP Q6HP PRN 04/01/19 Docosahexanoic AC/Epa [Fish Oil 1,000 MG*] 2 cap PO DAILY 04/01/19 Garlic 1 tab PO DAILY 04/01/19 Levothyroxine [Synthroid*] 1 tab PO DAILY 04/01/19 Loperamide HCl [Imodium A-D] 1 tab PO Q6HP PRN 04/01/19 Melatonin 1 tab PO BEDTIME 04/01/19 Memantine HCl [Namenda*] 1 tab PO BID 04/01/19 Multivit-Min/FA/Lycopen/Lutein [Cvs Spectravite Adult 50 Plus] 1 tab PO DAILY Polyethylene Glycol 3350 [Miralax] 1 pkt PO DAILY 04/01/19 Quetiapine [Seroquel*] 1 tab PO TID PRN 04/01/19 Quetiapine [Seroquel*] 2 tab PO BEDTIME 04/01/19 Simvastatin 1 tab PO DAILY 04/01/19 Triamterene/Hctz [Maxzide 37.5 mg-25 mg Tablet*] 1 tab PO DAILY 04/01/19 Diet: AHA Activity: Fall precautions
[2019-04-02 10:45] VITALS: TEMP 97.2
[2019-04-02] MEDS ORDERED: QUETIAPINE 100MG TAB PO SCH (21:00)
[2019-04-02] MEDS ORDERED: MELATONIN 5 MG TABLET PO SCH (21:00)
== END 2019-04-02 12:01 | disposition home or self-care (01) ==
LOC: ER 17:39 → ERHOLD 23:46 → 4TH 04-01 00:32
PROVIDERS: ADMIT Hospitalist; ATTEND Internal Medicine
DX: I50.31 Acute diastolic (congestive) heart failure (principal); E78.5 Hyperlipidemia, unspecified; I10 Essential (primary) hypertension; E03.9 Hypothyroidism, unspecified; R53.1 Weakness; G30.9 Alzheimer's disease, unspecified; F02.80 Dementia in other diseases classified elsewhere, unspecified severity, without behavioral disturbance, psychotic disturbance, mood disturbance, and anxiety
CPT/HCPCS: 96365; 96361; 93005; 93306; 87040 ×2; 87088; 85025 ×3; 87086; 80048 ×3; 36415 ×2; 83735 ×3; 84100; 85610; 80076; 81003; 83036; 84484 ×2; 83690; 84145; 83880 ×2; 71045; 93971; 97116; 97161; 96375; 99285; J1940 ×3; J1650 ×2; J3475; J7030; G0378 ×3

== ENCOUNTER 2020-01-21 08:57 | Emergency (ER) | payer OTHER ==
[2020-01-21] MEDS ORDERED: NA CHLORIDE 0.9% 500 ML ONE (09:26)
[2020-01-21 09:58] LABS: Absolute Lymphocytes (CBC) 1.4 K/uL (0.7-4.9); Basophils % 0.2 % (0-1.3); Hematocrit 38.1 % (36.0-45.0); RBC Red Blood Cell Count 4.33 M/uL (3.86-4.86)
[2020-01-21 10:00] LABS: Protime INR 0.89
[2020-01-21 10:04] LABS: ALT/SGPT 22 U/L (12-78); AST/SGOT 15 U/L (15-37); Albumin 3.6 g/dL (3.4-5.0); Alkaline Phosphatase 98 U/L (45-117); BUN Blood Urea Nitrogen 33 mg/dL (7-18); Bicarbonate 30 mmol/L (21-32); Bilirubin Direct < 0.1 mg/dL (0-0.2); Bilirubin Total 0.2 mg/dL (0.2-1.0); CKMB Creatine Kinase MB 1.9 ng/mL (0.3-3.6); Creatine Phosphokinase 46 U/L (26-192); Glucose Level 128 mg/dL (74-106); Lipase 107 U/L (73-393); Magnesium 2.2 mg/dL (1.8-2.4); Potassium 3.9 mmol/L (3.5-5.1); Protein, Total 7.6 g/dL (6.4-8.2); Sodium Level 141 mmol/L (136-145); Troponin (Emerg Dept Use Only) < 0.02 ng/mL (0.0-0.045)
--- NOTE | 2020-01-21 10:34 | RAD REPORT ---
EXAM DESCRIPTION: CT - [id number] - 01/21/2020 10:11 am CLINICAL HISTORY: Trauma, head and neck injury. PAIN COMPARISON: No comparisons TECHNIQUE: Axial 5 mm thick images of the head were obtained. Axial 2 mm thick images of the cervical spine were obtained with sagittal and coronal reconstruction images generated and reviewed. All CT scans are performed using dose optimization technique as appropriate and may include automated exposure control or mA/KV adjustment according to patient size. FINDINGS: CT HEAD WITHOUT CONTRAST: No acute hemorrhage, hydrocephalus or extra-axial collection is identified.Moderate global brain atro phy.No areas of brain edema or midline shift. The paranasal sinuses and mastoids are clear.The calvarium is intact. CT CERVICAL SPINE WITHOUT CONTRAST: No fracture or subluxation.Moderate multilevel mid and lower cervical degenerative changes are presen t.No prevertebral soft tissues swelling is identified. IMPRESSION: No acute intracranial or cervical spine findings. Moderate mid and lower cervical degenerative changes.
--- NOTE | 2020-01-21 11:29 | RAD REPORT ---
EXAM DESCRIPTION: RAD - Pelvis - 01/21/2020 10:46 am CLINICAL HISTORY: PAIN COMPARISON: No comparisons FINDINGS: Diffuse osteopenia is seen. Mild degenerative changes are present in both hips. No acute f racture or dislocation seen.
--- NOTE | 2020-01-21 11:33 | RAD REPORT ---
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 No fracture or joint effusion. No aggressive marrow lesion.
--- NOTE | 2020-01-21 12:00 | EDPHYS ---
Physician Documentation [facility] Name: Liat Mercado Age: 89 yrs Sex: Female : 1930 Arrival Date: 01/21/2020 Time: 09:06 Bed 2 Private MD: ED Physician Varun Obando HPI: 01/20 11:57 This 89 yrs old Female presents to ER via EMS with complaints of syncope. ma2 11:57 fall. Onset: The symptoms/episode began/occurred gradually, 2 day(s) ago. Severity of ma2 symptoms: At their worst the symptoms were very mild in the emergency department the symptoms are unchanged. The patient has experienced similar episodes in the past. Historical: - Allergies: 09:12 No Known Allergies; em - PMHx: 09:12 Alzheimers; Hyperlipidemia; Hypertension; Hypothyroidism; em - Immunization history:: Adult Immunizations up to date. - Social history:: Smoking status: Patient denies any tobacco usage or history of. Patient/guardian denies using alcohol, street drugs, The patient lives with family. - Family history:: not pertinent. ROS: 11:57 Constitutional: Negative for fever, chills, and weight loss, Eyes: Negative for injury, ma2 pain, redness, and discharge. 11:57 All other systems are negative. Exam: 11:57 Constitutional: This is a well developed, well nourished patient who is awake, alert, ma2 and in no acute distress. Head/Face: Normocephalic, atraumatic. Eyes: Pupils equal round and reactive to light, extra-ocular motions intact. Lids and lashes normal. Conjunctiva and sclera are non-icteric and not injected. Cornea within normal limits. Periorbital areas with no swelling, redness, or edema. ENT: Nares patent. No nasal discharge, no septal abnormalities noted. Tympanic membranes are normal and external auditory canals are clear. Oropharynx with no redness, swelling, or masses, exudates, or evidence of obstruction, uvula midline. Mucous membranes moist. Neck: Trachea midline, no thyromegaly or masses palpated, and no cervical lymphadenopathy. Supple, full range of motion without nuchal rigidity, or vertebral point tenderness. No Meningismus. Chest/axilla: Normal chest wall appearance and motion. Nontender with no deformity. No lesions are appreciated. Cardiovascular: Regular rate and rhythm with a normal S1 and S2. No gallops, murmurs, or rubs. Normal PMI, no JVD. No pulse deficits. Respiratory: Lungs have equal breath sounds bilaterally, clear to auscultation and percussion. No rales, rhonchi or wheezes noted. No increased work of breathing, no retractions or nasal flaring. Abdomen/GI: Soft, non-tender, with normal bowel sounds. No distension or tympany. No guarding or rebound. No evidence of tenderness throughout. Back: No spinal tenderness. No costovertebral tenderness. Full range of motion. Skin: Warm, dry with normal turgor. Normal color with no rashes, no lesions, and no evidence of cellulitis. MS/ Extremity: Pulses equal, no cyanosis. Neurovascular intact. Full, normal range of motion. Neuro: Awake and alert, GCS 15, oriented to person, place, time, and situation. Cranial nerves II-XII grossly intact. Motor strength 5/5 in all extremities. Sensory grossly intact. Cerebellar exam normal. Normal gait. Vital Signs: 09:10 BP 124 / 85; Pulse 87; Resp 18; Temp 97.8; Pulse Ox 94% on R/A; Weight 90.72 kg; Pain em 0/10; MDM: 09:06 Patient medically screened. [facility] 11:57 Differential Diagnosis syncope, fall, arrythmia, . Data reviewed: vital signs, nurses [facility] notes. Counseling: I had a detailed discussion with the patient and/or guardian regarding: the historical points, exam findings, and any diagnostic results supporting the discharge/admit diagnosis, the presence of at least one elevated blood pressure reading (>120/80) during this emergency department visit, the need for further work-up and treatment in the hospital. Response to treatment: the patient's symptoms have markedly improved after treatment. 12:07 ED course: patient evaluated by dr. dow and jacob and patient now want to be [facility] discharged and f/u with her pcp in 1 day for syncope workup.. daughter at bedside and she want that plan as well/. 01/20 09:08 Order name: Basic Metabolic Panel [facility] 01/20 09:08 Order name: CBC with Diff [facility] 01/20 09:08 Order name: Ckmb [facility] 01/20 09:08 Order name: CPK ma2 01/20 09:08 Order name: Hepatic Function; Complete Time: 11:36 ma2 01/20 09:08 Order name: Lipase; Complete Time: 11:36 ma2 01/20 09:08 Order name: Magnesium; Complete Time: 11:36 ma2 01/20 09:08 Order name: Protime (+inr); Complete Time: 11:36 ma2 01/20 09:08 Order name: Ptt, Activated; Complete Time: 11:36 ma2 01/20 09:08 Order name: Troponin (emerg Dept Use Only); Complete Time: 11:36 ma2 01/20 09:08 Order name: Basic Metabolic Panel; Complete Time: 11:36 EDMS 01/20 09:08 Order name: CBC with Automated Diff; Complete Time: 11:36 EDMS 01/20 09:09 Order name: CKMB Creatine Kinase MB; Complete Time: 11:36 EDMS 01/20 09:09 Order name: Creatine Phosphokinase; Complete Time: 11:36 EDMS 01/20 09:08 Order name: CT Head C Spine; Complete Time: 11:36 ma2 01/20 09:08 Order name: EKG; Complete Time: 09:09 ma2 01/20 09:08 Order name: Cardiac monitoring; Complete Time: 13:15 ma2 01/20 09:08 Order name: EKG - Nurse/Tech; Complete Time: 11:08 ma2 01/20 09:08 Order name: IV Saline Lock; Complete Time: 09:13 ma2 01/20 09:08 Order name: Labs collected and sent; Complete Time: 09:13 ma2 01/20 09:08 Order name: NPO; Complete Time: 09:13 ma2 01/20 09:08 Order name: O2 Per Protocol; Complete Time: 09:13 ma2 01/20 09:08 Order name: O2 Sat Monitoring; Complete Time: 09:13 ma2 01/20 09:08 Order name: Urine Dipstick-Ancillary (obtain specimen); Complete Time: 11:49 ma2 01/20 09:49 Order name: Pelvis XRAY; Complete Time: 11:36 em 01/20 09:49 Order name: Femur Left XRAY; Complete Time: 11:36 em 01/20 11:52 Order name: Urine Dipstick--Ancillary (enter results) em1 Administered Medications: 09:33 Drug: NS 0.9% 500 ml Route: IV; Rate: 1 bolus; Site: right antecubital; em 11:20 Follow up: Response: IV infiltrated; IV Status: Completed infusion; IV Intake: 250ml em Disposition: 01/21/20 12:08 Discharged to Home. Impression: Syncope and collapse. - Condition is Stable. - Discharge Instructions: Syncope, [id number]. - Medication Reconciliation Form, Thank You Letter, Antibiotic Education, Prescription Opioid Use form. - Follow up: Private Physician; When: Tomorrow; Reason: If symptoms return, Continuance of care. Signatures: Dispatcher [employer] Clay Sequeira RN RN em Alzahri, Mohammad, MD MD ma2 Corrections: (The following items were deleted from the chart) 12:08 11:59 Hospitalization Ordered by Neal Dow DO for Observation. Preliminary ma2 diagnosis is Syncope and collapse. Bed requested for Telemetry/MedSurg (observation). Status is Observation. Condition is Stable. Problem is new. Symptoms are unchanged. ma2 13:17 12:08 01/21/2020 12:08 Discharged to Home. Impression: Syncope and collapse. Condition em is Stable. Forms are Medication Reconciliation Form, Thank You Letter, Antibiotic Education, Prescription Opioid Use. Follow up: Private Physician; When: Tomorrow; Reason: If symptoms return, Continuance of care. ma2
--- NOTE | 2020-01-21 12:00 | ER ---
Nurse's Notes [facility] Name: Liat Mercado Age: 89 yrs Sex: Female : 1930 Arrival Date: 01/21/2020 Time: 09:06 Bed 2 Private MD: Diagnosis: Syncope and collapse Presentation: 01/20 09:10 Chief complaint: EMS states: was at an assisted living and was found in the bathroom on em the floor, unknown down time, pt denies pain at this time. Coronavirus screen: Proceed with normal triage. Patient denies a cough. Patient denies shortness of breath or difficulty breathing. Patient denies measured and/or subjective temperature greater than 100.4F prior to today's visit. Patient denies travel on a cruise ship or to a country the [facility] currently lists as an affected area. Patient denies contact with known and/or suspected case of COVID-19. Ebola Screen: Patient negative for fever greater than or equal to 101.5 degrees Fahrenheit, and additional compatible Ebola Virus Disease symptoms Patient denies exposure to infectious person. Patient denies travel to an Ebola-affected area in the 21 days before illness onset. No symptoms or risks identified at this time. Initial Sepsis Screen: Does the patient meet any 2 criteria? No. Patient's initial sepsis screen is negative. Does the patient have a suspected source of infection? No. Patient's initial sepsis screen is negative. Risk Assessment: Do you want to hurt yourself or someone else? Patient reports no desire to harm self or others. Onset of symptoms was January 21, 2020. 09:10 Method Of Arrival: EMS: [facility] em 09:10 Acuity: [facility]ILE[facility] 3 em Historical: - Allergies: 09:12 No Known Allergies; em - PMHx: 09:12 Alzheimers; Hyperlipidemia; Hypertension; Hypothyroidism; em - Immunization history:: Adult Immunizations up to date. - Social history:: Smoking status: Patient denies any tobacco usage or history of. Patient/guardian denies using alcohol, street drugs, The patient lives with family. - Family history:: not pertinent. Screenin:10 Abuse screen: no apparent signs noted. Nutritional screening: No deficits noted. em Tuberculosis screening: No symptoms or risk factors identified. Fall Risk None identified. Assessment: 09:10 General: Appears in no apparent distress. comfortable, Behavior is calm, cooperative, em appropriate for age, Denies fever. Pain: Complains of pain in left leg Pain currently is 0 out of 10 on a pain scale. Aggravated by repositioning, weight bearing. Neuro: Level of Consciousness is awake, alert, obeys commands, Oriented to person. Cardiovascular: Capillary refill < 3 seconds Patient's skin is warm and dry. Respiratory: Airway is patent Respiratory effort is even, unlabored, Respiratory pattern is regular, symmetrical. GI: Abd is soft and non tender X 4 quads. Derm: Skin is intact, is fragile, is thin, Skin is pink, warm \T\ dry. Musculoskeletal: Capillary refill < 3 seconds, Range of motion: intact in all extremities. 10:00 Reassessment: awake and alert x 1, respirations even and unlabored, skin pink warm and em dry, daughter at bedside. 11:00 Reassessment: awake and alert x 1, respirations even and unlabored, skin pink warm and em dry, daughter at bedside. 12:00 Reassessment: Patient appears in no apparent distress at this time. awake and alert x em 1, respirations even and unlabored, skin pink warm and dry, daughter at bedside. 12:30 Reassessment: wheelchair van has been notified, pending transportation. em Vital Signs: 09:10 BP 124 / 85; Pulse 87; Resp 18; Temp 97.8; Pulse Ox 94% on R/A; Weight 90.72 kg; Pain em 0/10; ED Course: 09:06 Patient arrived in ED. em1 09:06 Varun Obando MD is Attending Physician. ma2 09:10 Clay Vizcarra, ISABELA is Primary Nurse. em 09:10 Patient has correct armband on for positive identification. Bed in low position. Call em light in reach. Side rails up X2. Adult w/ patient. coordinator skill training program on. Pulse ox on. NIBP on. 09:12 Triage completed. em 09:12 Arm band placed on. em 09:30 Initial lab(s) drawn, by me, sent to lab. Inserted saline lock: 22 gauge in right em antecubital area, using aseptic technique. Blood collected. 10:11 CT Head C Spine In Process Unspecified. EDMS 10:46 Pelvis XRAY In Process Unspecified. EDMS 10:46 Femur Left XRAY In Process Unspecified. EDMS 11:03 EKG done, by ED staff, reviewed by Varun Obando MD. [facility] 11:20 No provider procedures requiring assistance completed. IV discontinued, intact, em bleeding controlled, No redness/swelling at site. Pressure dressing applied. 11:45 Straight cath inserted, using sterile technique, 14 Fr. Specimen obtained. Returned 3 clear yellow urine. Patient tolerated well. 11:59 Neal Unger DO is Hospitalizing Provider. ma2 Administered Medications: 09:33 Drug: NS 0.9% 500 ml Route: IV; Rate: 1 bolus; Site: right antecubital; em 11:20 Follow up: Response: IV infiltrated; IV Status: Completed infusion; IV Intake: 250ml em Intake: 11:20 IV: 250ml; Total: 250ml. em Outcome: 11:59 Decision to Hospitalize by Provider. ma2 12:08 Discharge ordered by . ma2 13:16 Discharged to [facility]. Transfer form completed. em 13:16 Condition: good 13:16 Discharge instructions given to patient, family, Instructed on discharge instructions, follow up and referral plans. Demonstrated understanding of instructions, follow-up care. 13:17 Patient left the ED. em Signatures: Dispatcher [employer] Clay Sequeira, Cory Mac RN em1 Kelly Herrera [facility] Varun Obando MD MD sd2
--- NOTE | 2020-01-21 12:19 | P.CNS ---
Date of Consult: 01/21/20 Reason for Consult: ER evaluation for possible admit Requesting Physician: Varun Obando Chief Complaint: Syncope History of Present Illness: 89-year-old female with a past medical history of advanced Alzheimer's, hypertension, hypothyroidism and hyperlipidemia resident of a intermediate who presented to the emergency room with complaints of syncope. The patient is accompanied by her daughter who is her [id number]. Daughter states that she received a phone call from the intermediate this morning stating that they had found her mother on the bathroom floor. In speaking with the daughter and it appears that the patient's bed alarm was not in place with scant nursing staff at the intermediate did not realize patient who normally uses a front wheeled rolling walker to ambulate had gotten out of bed without help. In the emergency room patient's pelvic x-ray shows -Diffuse osteopenia is seen. Mild degenerative changes are present in both hips. No acute fracture or dislocation seen. Left leg x-ray shows: Left total knee arthroplasty is seen. No fracture or joint effusion. No aggressive marrow lesion, and CT of the head/cervical spine shows - No acute hemorrhage, hydrocephalus or extra-axial collection is identified. Moderate global brain atrophy. No areas of brain edema or midline shift. The paranasal sinuses and mastoids are clear.The calvarium is intact. No acute intracranial or cervical spine findings. Moderate mid and lower cervical degenerative changes. Lab work is really unremarkable and EKG showed no acute pathology. In my ER evaluation patient looks alert and oriented to person. She is in no distress. No pain. Daughter is bedside. Speaking with daughter her wishes are to evaluate the patient for any acute fractures. Patient is agreeable to MRI of the brain to rule out any CVA. Daughter states that she would prefer the patient to be returned back to the intermediate assuming no acute pathology findings. The patient is a DNR DNI and daughter does not want to put her mother through too many procedures or agitate the patient outside of her environment if not entirely necessary. I discussed this with the emergency room physician and after the MRI is complete is no acute pathology is found the patient will be returned back to her intermediate. Allergies No Known Allergies Allergy (Unverified 04/01/19 01:38) Home medications list reviewed: No Home Medications: Acetaminophen [Pain Relief] 2 tab PO Q4HP PRN 04/01/19 Amlodipine Besylate/Benazepril [Amlodipine-Benazepril 5-20 mg] 1 tab PO DAILY 04/01/19 Amoxicillin 1 tab PO BID 04/01/19 B12 Liquid 1,000 mg PO DAILY 04/01/19 Cranberry Fruit Extract/Vit C [Azo Cranberry Softgel] 1 cap PO DAILY 04/01/19 Diclofenac Sodium [Voltaren] 1 win TOP Q6HP PRN 04/01/19 Docosahexanoic AC/Epa [Fish Oil 1,000 MG*] 2 cap PO DAILY 04/01/19 Garlic 1 tab PO DAILY 04/01/19 Levothyroxine [Synthroid*] 1 tab PO DAILY 04/01/19 Loperamide HCl [Imodium A-D] 1 tab PO Q6HP PRN 04/01/19 Melatonin 1 tab PO BEDTIME 04/01/19 Memantine HCl [Namenda*] 1 tab PO BID 04/01/19 Multivit-Min/FA/Lycopen/Lutein [Cvs Spectravite Adult 50 Plus] 1 tab PO DAILY 04/01/19 Polyethylene Glycol 3350 [Miralax] 1 pkt PO DAILY 04/01/19 Quetiapine [Seroquel*] 1 tab PO TID PRN 04/01/19 Quetiapine [Seroquel*] 2 tab PO BEDTIME 04/01/19 Simvastatin 1 tab PO DAILY 04/01/19 Triamterene/Hctz [Maxzide 37.5 mg-25 mg Tablet*] 1 tab PO DAILY 04/01/19 - Past Medical/Surgical History Diabetic: No -: Alzheimers -: HLD -: HTN -: Hypothyrodism -: knee surgery -: rotator cuff surgery -: cataract Psychosocial/ Personal History: Patient is a resident of a intermediate. She has a daughter and a son who visits her on a regular basis. She has advanced dementia. She is pleasant and cooperative. - Family History Father Medical History: Other (see notes) (Alzheimer's) Notes: alzheimers Mother Medical History: Heart disease Family History: Reviewed- Non-Contributory - Social History Smoking Status: Never smoker Alcohol use: No CD- Drugs: No Caffeine use: Yes Place of Residence: Longterm Review of Systems 10-point ROS is otherwise unremarkable General: As per HPI Integumentary: Bruising (Left inner thigh, mildly tender to palpation) Physical Examination General: Alert, Oriented x1 HEENT: Atraumatic, Normocephalic, PERRLA Neck: Supple, Other (Trachea midline) Respiratory: Clear to auscultation bilaterally, Normal air movement Cardiovascular: No edema, Normal pulses, Normal S1 S2 Capillary refill: <2 Seconds Gastrointestinal: Normal bowel sounds, Soft and benign, Non-distended Musculoskeletal: No clubbing, No swelling, No contractures, Tenderness (Left inner thigh mildly tender to palpation) Integumentary: No rashes, No breakdown, No erythema Neurological: Normal speech, Normal strength at 5/5 x4 extr, Normal tone Other Physical/Emotional Findings: Alzheimer's dementia Laboratory Data (last 24 hrs) 01/21/20 09:30: PT 10.5, INR 0.89, APTT 30.5 01/21/20 09:30: WBC 4.3, Hgb 12.6, Hct 38.1, Plt Count 176 01/21/20 09:30: Sodium 141, Potassium 3.9, BUN 33 H, Creatinine 1.01, Glucose 128 H, Magnesium 2.2, Total Bilirubin 0.2, AST 15, ALT 22, Alkaline Phosphatase 98, Lipase 107 Conclusions/Impression: Impression: Syncope Alzheimer's dementia Hyperlipidemia Essential hypertension Hypothyroidism Plan: Patient was evaluated in the ER for syncope. Imaging showed no acute fractures. CT of the head and cervical spine showed no acute pathology. No intracranial bleed. Patient shows no acute fractures of the hip or left leg. Lab work was fairly unremarkable and EKG showed no acute pathology. Daughter who is bedside prefers the patient to return back to the intermediate assuming no acute fractures or stroke-like symptoms are present. Discuss this case with the emergency room physician who will order an MRI of the brain. If the MRI is negative and no acute pathologies found patient can be returned back to the intermediate. Emergency room physician was agreeable as well as the daughter with this plan of care. Patient is DNR DNI and the daughter as well as the patient does not want to major workup done at this time. Time Spent Managing Pts care (In Minutes): 50
[2020-01-21 12:21] LABS: Urine Blood NEGATIVE (NEG); Urine Glucose NEGATIVE (NEG); Urine Protein NEGATIVE (NEG); Urine pH 6.5 (5.0-7.0)
[2020-01-21 13:23] VITALS: BP 124/85; TEMP 97.8; O2SAT 94
--- NOTE | 2020-01-22 08:57 | EKG ---
Test Date: 2020-01-21 Test Time: 11:03:33 Inbound Call Center Representative: TRISTAN MEASUREMENT RESULTS: Intervals: Rate: 80 VT: 186 QRSD: 152 QT: 420 QTc: 484 [place]: P: 50 VT: 186 QRS: -43 T: 44 INTERPRETIVE STATEMENTS: Normal sinus rhythm Left axis deviation Right bundle branch block Abnormal ECG Compared to ECG 03/31/2019 21:12:40 Left-axis deviation now present Left anterior fascicular block no longer present Bifascicular block no longer present Electronically Signed On 01-22-20 08:55:21 CDT by Johan Perez
== END 2020-01-21 13:17 | disposition home or self-care (01) ==
LOC: ER 08:57
DX: R55 Syncope and collapse (principal); I10 Essential (primary) hypertension; E78.5 Hyperlipidemia, unspecified; E03.9 Hypothyroidism, unspecified; W19.XXXA Unspecified fall, initial encounter; Y93.9 Activity, unspecified; Y92.9 Unspecified place or not applicable; G30.9 Alzheimer's disease, unspecified; F02.80 Dementia in other diseases classified elsewhere, unspecified severity, without behavioral disturbance, psychotic disturbance, mood disturbance, and anxiety
CPT/HCPCS: 96361; 93005; 85025; 80048; 36415; 83735; 82550; 85610; 80076; 85730; 81003; 84484; 82553; 83690; 70450; 72125; 72170; 73552; 51702; 96360; 99285; J7040